=== PATIENT | female | born 2000 | race Caucasian/White ===

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

== ENCOUNTER 2021-03-10 03:50 | Inpatient (IN) ==
[2021-03-10] MEDS ORDERED: Lidocaine 1% 20 ML MDV INFILT PRN (03:57)
[2021-03-10] MEDS ORDERED: Naloxone 0.4 MG/ML INJ IVP PRN (03:57)
[2021-03-10] MEDS ORDERED: Famotidine 20 MG/2 ML VIAL IVP PRN (03:57)
[2021-03-10] MEDS ORDERED: Metoclopramide 10 MG/2 ML VIAL IVP PRN (03:57)
[2021-03-10] MEDS ORDERED: *HR* Nalbuphine 10 MG/ML AMPUL IV PRN (03:57)
[2021-03-10] MEDS ORDERED: miSOPROStoL 25 MCG TABLET PO PRN (04:00)
[2021-03-10 04:52] LABS: Amphetamine Screen,Urine Negative ng/mL (Cutoff=1000); Barbiturate Screen,Urine Negative ng/mL (Cutoff=200); Benzodiazepines Screen,Urine Negative ng/mL (Cutoff=200); Cannabinoid Screen,Urine Negative ng/mL (Cutoff = 50); Cocaine Screen,Urine Negative ng/mL (Cutoff= 300); Opiate Screen,Urine Negative ng/mL (Cutoff=300); Phencyclidine Screen,Urine Negative ng/mL (Cutoff=25)
[2021-03-10 05:04] LABS: Basophils % 0.3 %; Eosinophils # 0.1 K/mcL (0.0-0.6); Eosinophils % 0.8 %; Hematocrit 34.7 % (35.3-44.9); Hemoglobin 11.5 g/dL (11.5-15.4); Immature Granulocytes % 0.5 % (0-4); Lymphocytes # 2.1 K/mcL (0.6-4.6); Lymphocytes % 17.9 %; Mean Corpuscular HGB Conc 33.1 g/dL (31.6-35.5); Mean Corpuscular Hemoglobin 28.5 pg (28.0-33.3); Mean Corpuscular Volume 86.1 fL (83.0-100.0); Mean Platelet Volume 11.1 fL (9.4-12.4); Monocytes # 0.9 K/mcL (0.0-1.3); Monocytes % 7.6 %; Neutrophils # 8.5 K/mcL (1.6-8.9); Platelet Count 236 K/mcL (140-400); Red Blood Count 4.03 M/mcL (3.82-4.97); Red Cell Distribution Width 13.3 % (11.5-14.5); Segmented Neutrophils % 72.9 %; White Blood Count 11.6 K/mcL (4.3-11.1)
[2021-03-10] MEDS ORDERED: Ondansetron 4 MG/2 ML VIAL ONE (05:09)
[2021-03-10 06:59] LABS: Influenza A PCR Negative (Negative); Influenza B PCR Negative (Negative); Resp. Syncytial Virus PCR Negative (Negative)
[2021-03-10] MEDS ORDERED: *HR* FentaNYL (PF) 250 MCG/5 ML VIAL ONE ×2 (06:59→18:57)
[2021-03-10] MEDS ORDERED: Ropivacaine/PF 0.2% 20 ML VIAL ONE (06:59)
[2021-03-10 07:00] LABS: SARS-CoV-2 by PCR (In House) Negative (Negative)
[2021-03-10] MEDS ORDERED: *HR* FentaNYL (PF) 100 MCG/2 ML VIAL EP ONE (07:42)
[2021-03-10] MEDS ORDERED: Ropivacaine/PF 0.2% 20 ML VIAL EP ONE (07:42)
[2021-03-10] MEDS ORDERED: EPHEDrine 50 MG/ML VIAL IVP PRN (07:42)
[2021-03-10] MEDS ORDERED: Oxytocin 20 units/ LR 1000 mL 20 UNIT/1,000 ML BAG IVC SCH (09:00)
[2021-03-10] MEDS: Ringers Solution, Lactated 1,000 ML IVC SCH ×3 (09:21→21:04)
[2021-03-10] MEDS ORDERED: EPHEDrine 50 MG/ML VIAL ONE (14:06)
[2021-03-10] MEDS ORDERED: EPINEPHrine 1 MG/ML VIAL ONE (14:06)
[2021-03-10] MEDS ORDERED: *HR* FentaNYL (PF) 100 MCG/2 ML VIAL ONE ×2 (14:07→20:08)
[2021-03-10] MEDS: Epidural Premix (fent/bupiv) 110 ML EP SCH (18:08)
[2021-03-11] MEDS ORDERED: *HR* FentaNYL (PF) 100 MCG/2 ML VIAL ONE ×4 (00:10→05:18)
[2021-03-11] MEDS: Epidural Premix (fent/bupiv) 110 ML EP SCH (00:48)
[2021-03-11] MEDS ORDERED: Ropivacaine/PF 0.2% 20 ML VIAL ONE (05:05)
[2021-03-11] MEDS ORDERED: *HR* FentaNYL (PF) 250 MCG/5 ML VIAL ONE (05:51)
[2021-03-11] MEDS ORDERED: *HR* Phenylephrine 10 MG/ML VIAL ONE (07:20)
[2021-03-11] MEDS ORDERED: Ondansetron 4 MG/2 ML VIAL IVP ONE (09:06)
[2021-03-11] MEDS ORDERED: Lanolin 7 G OINT...G. TP PRN (10:01)
[2021-03-11] MEDS ORDERED: Benzocaine/Menthol 56 GM AEROSOL SPRAY TP PRN (10:01)
[2021-03-11] MEDS ORDERED: Oxytocin 20 units/ LR 1000 mL 20 UNIT/1,000 ML BAG IVC ONE (10:01)
[2021-03-11] MEDS ORDERED: Oxytocin 20 units/ LR 1000 mL 20 UNIT/1,000 ML BAG IVC SCH (10:01)
[2021-03-11] MEDS ORDERED: Ondansetron ODT 4 MG TAB.RAPDIS SL PRN (10:01)
[2021-03-11] MEDS: Prenatal Vit/FA 1 EACH TABLET PO SCH (12:00)
[2021-03-11] MEDS: Ibuprofen 600 MG TABLET PO SCH ×3 (12:00→22:20)
[2021-03-11] MEDS: Acetaminophen 325 MG TABLET PO SCH ×3 (12:00→22:20)
[2021-03-12] MEDS: Ibuprofen 600 MG TABLET PO SCH (04:40)
[2021-03-12] MEDS: Acetaminophen 325 MG TABLET PO SCH (04:41)
[2021-03-12 08:11] VITALS: BP 129/80; PULSE 80; TEMP 97.7; O2SAT 98
[2021-03-12] MEDS: Prenatal Vit/FA 1 EACH TABLET PO SCH (08:15)
== END 2021-03-12 11:51 | disposition home or self-care (01) | DRG 807 ==
LOC: 1NENULAB 03:50 → 1NENUOBS 03-11 09:48
PROVIDERS: ADMIT Obstetrics & Gynecology; ATTEND Obstetrics & Gynecology